=== PATIENT | female | born 1985 | race Caucasian/White ===

== ENCOUNTER 2021-03-12 04:53 | Inpatient (IN) | payer BC ==
--- NOTE | 2021-03-11 22:00 | PCM.LDHP ---
L&D History of Present Illness - General Date of Service: 03/12/21 Admit Problem/Dx: Admission Diagnosis/Problem Admission Diagnosis/Problem 03/11/21 21:40 Mary is a 36-year-old 7 para 2-0-4-2 female admitted on the a.m. of 03/12/2021 with an [place] of 03/23/2021 for repeat section. Repeat C- section done at this gestational age for history of hypertension on hypertensive medications earlier in . Source of Information: Patient History Limitations: Reports: No Limitations - History of Present Illness Introduction:: Mary is a 36-year-old 7 para 2-0-4-2 female admitted on the a.m. of 03/12/2021 with an [place] of 03/23/2021 for repeat section. Repeat C- section done at this gestational age for history of hypertension on hypertensive medications earlier in . The procedure of repeat section, its risks, benefits, limitations and follow-up were all discussed with patient in detail. She appears to understand and wishes to proceed. 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 Her section being done for failure to progress. Second section for elective repeat. Patient had menarche at age 13. Cycles q. 28 to 30 days and fairly regular. Certain onset of last menstrual 06/16/2020. Patient has no history of abnormal Pap smear. No history of STIs. Past obstetric history includes the followin. Miscarriage occurring at 6 weeks gestation on 02/24/2005 2. Miscarriage occurring at 6 weeks on 07/29/2006 3. Male infant born on 11/24/2009 at 40 weeks gestational age18 hours of labor6 pounds 14 ouncesprimary done for forward progress and CPD. [facility]. [facility] 4. Miscarriage at 8 weeks gestational age on 10/09/2011 5. Male infant born on 10/08/2013 at 39 weeks gestational age2 hours labor7 pounds 8 ounceselective repeat sectionspinal block for anesthesia- born in [place], [place]. Child's name is Karl 6. Miscarriage at 8 weeks occurring on 11/07/2015. course: Mary was seen for her first visit on 08/28/2020. She had an ultrasound done at that time which correlated exactly with her LMP dating. She had 4 other ultrasounds during the course the which correlated well with her [place] of 03/23/2021. She was seen on a very regular basis during the course of her . Patient's weight gain was from 212 to 237 pounds for 25 pound increase. Her blood pressures were normal on first evaluation but patient was on lisinopril at that time for previously diagnosed hypertension. This was discontinued right away. Patient was started on baby aspirin daily. Throughout the course of her she has not been on blood pressure medications. She was seen by M during her and recommendation was for delivery after 38 weeks gestation. Fundal height growth has been appropriate for dates. She is group B strep negative. She she has risk factors of being AMA. On lisinopril in early part of the , history of x2, history of kidney stones, history of miscarriages x4, increased distance from hospital she lives in [place], [place]. Her prequel testing was negative for trisomy 21, 18 and 13. She plans to breast- feed. She has a history of oral HSV. She smokes about 1/2 pack/day but was smoking 2 packs/day early in the . She received her hepatitis vaccination in 1998. She is rubella immune. Laboratory testing shows blood to be be positive with a negative antibody screen. First hemoglobin was 13.6 g/dL and platelets are 278,000. She is rubella immune. RPR is nonreactive. Initial urine culture showed E. coli which was treated. Her hepatitis B surface antigen and HIV assays were both negative. Prequel was performed and was negative for trisomy 21, 18 and 13. HCV antibody 01/01/2021 was less than 0.1. Second trimester labs showed a hemoglobin which is mildly decreased at 11.5 g/dL and platelets are 266,000. Her 1 hour GTT was 108. Group B strep screen 03/01/2021 was negative. RPR done on 01/02/2000 was nonreactive. Allergies: None Medications: 1. vitamins 1 daily 2. Aspirin 81 mg p.o. daily 3. Valacyclovir 1 tablet daily prophylactically 4. Flonase allergy relief nasal spray 50 mcg per action use as needed for allergies 5. Ferrous sulfate 325 mg p.o. daily. 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 2. History of kidney stones 3. Hypertension on medication since 2016was found to be normotensive on first visit 4. Anxiety and that she is afraid of . 5. depression with first 6. Gastroesophageal reflux disease with endoscopy showing polyps in 2019 7. History of multiple miscarriages x4 Past surgical history: 1. Endoscopy showing polyps 2019 2. x2 Family history: Mother is alive but with high blood pressure. She has a history of alcohol abuse. She is 55 years old. Maternal grandmother is secondary to meth overdose at age 52. Maternal grandfather is secondary to leukemia. Father is alive with high blood pressure. Also had testicular cancer 10 to 15 years ago. Paternal grandfather is alive at age 86 but is losing his memory. Paternal grandmother is alive and healthy. Brothers are alive and well. Sisters x2 are alive. One sister has had a baby. Cousins uncles and aunts show a paternal aunt had breast cancer early in life is alive. Patient has had DNA mutation testing. She reports them to be negative. There is family history of cancer but types are unknown. No family history of bleeding, clotting, anesthesia or related concerns. Social history: Patient is . Significant other is Juan Dao. 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 She smokes half pack per day but does not use any significant also alcohol or other drugs. Review of systems: In general patient has no complaints. Baby has been active. Some cramping has been noted no loss of fluid or vaginal bleeding. Skin: Negative Lungs: No infectious symptoms or shortness of breath Cardiovascular: No chest pain or exercise intolerance Breasts: No lumps, changes in size, pain, dimpling, discharge or axillary or supraclavicular concerns. GI: Negative : Body habitus changes consistent with . Musculoskeletal: Negative Neurological: Negative Physical exam: In general the patient is well-developed, well-nourished, pleasant female of stated age in no acute distress. On last evaluation clinic patient's blood pressure is 126/78. Weight was 237 with first weight at 212. Her height is 5 feet 8 inches. Prepregnancy body mass index is 33. Skin is warm dry without lesions. HEENT, neck and back within normal limits. Lungs are clear with good breath sounds in all lung sanchez. Cardiovascular exam shows regular and rhythm without murmurs. Breast exam is not done at this time having been done at first mayuri visit, showing pendulous breasts but no abnormalities. It is not repeated at this point. Abdomen is gravid with last fundal height in clinic at 88 cm, baby in vertex presentation. Genital per bimanual last done on 03/01/2021 strip shows cervix is closed, 50% effaced, soft, -3, mid position. Extremities and neurological exam are grossly within normal limits. - Related Data Allergies/Adverse Reactions: Allergies Allergy/AdvReac Type Severity Reaction Status Date / Time No Known Allergies Allergy Verified 03/11/21 14:48 Home Medications: Home Meds Aspirin 81 mg PO DAILY 03/11/21 [History] Fluticasone Propionate [Flonase Allergy Relief] 9.9 ml NS 03/11/21 [History] Vit,Cachorro 74/Iron/Folic [ Low Iron Tablet] 1 tab PO DAILY 03/11/21 [History] valACYclovir HCl [Valtrex] 1 tab PO DAILY 03/11/21 [History] Past Medical History HEENT History: Reports: Otitis Media, Sinusitis Other HEENT History: treated in the last 2 wweks Cardiovascular History: Reports: Hypertension Other Cardiovascular History: not currently on any meds Genitourinary History: Reports: Renal Calculus AIRPORT ENGINEER History: Reports: , Spontaneous Psychiatric History: Reports: Anxiety Hematologic History: Reports: Anemia - Past Surgical History Head Surgeries/Procedures: Reports: None HEENT Surgical History: Reports: Oral Surgery, Other (See Below) Other HEENT Surgeries/Procedures: History of Section x 2 Cardiovascular Surgical History: Reports: None Female Surgical History: Reports: Section Social & Family History - Family History Family Medical History: No Pertinent Family History - Tobacco Use Tobacco Use Status *Q: Current Some Day Tobacco User Years of Tobacco use: 20 Packs/Tins Daily: 0.5 Used Tobacco, but Quit: No Second Hand Smoke Exposure: No - Caffeine Use Caffeine Use: Reports: None - Recreational Drug Use Recreational Drug Use: No H&P Review of Systems - Review of Systems: Review Of Systems: See Below L&D Exam - Exam Exam: See Below - Problem List (1) History of hypertension SNOMED Code(s): 044151383 ICD Code: Z86.79 - PERSONAL HISTORY OF OTHER DISEASES OF THE CIRCULATORY SYSTEM Status: Acute (2) AMA (advanced maternal age) multigravida 35+ SNOMED Code(s): 935522754 ICD Code: O09.529 - SUPERVISION OF ELDERLY MULTIGRAVIDA, UNSPECIFIED TRIMESTER Status: Acute (3) 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, not SNOMED Code(s): 525334803, 366668622, 654490335 ICD Code: N96 - RECURRENT LOSS Status: Acute (4) Recurrent loss SNOMED Code(s): 749989423 ICD Code: N96 - RECURRENT LOSS Status: Acute (5) Obesity SNOMED Code(s): 548651769, 299689968 ICD Code: E66.9 - OBESITY, UNSPECIFIED Status: Acute (6) History of smoking SNOMED Code(s): 626216408 ICD Code: Z87.891 - PERSONAL HISTORY OF NICOTINE DEPENDENCE Status: Acute (7) Group beta Strep positive SNOMED Code(s): 878930222, 754858732 ICD Code: B95.1 - STREPTOCOCCUS, GROUP B, CAUSING DISEASES CLASSD ELSWHR Status: Acute (8) Anemia affecting SNOMED Code(s): 87692716 ICD Code: O99.019 - ANEMIA COMPLICATING , UNSPECIFIED TRIMESTER Status: Acute (9) History of kidney stones SNOMED Code(s): 230404739 ICD Code: Z87.442 - PERSONAL HISTORY OF URINARY CALCULI Status: Acute (10) Anxiety SNOMED Code(s): 73865018 ICD Code: F41.9 - ANXIETY DISORDER, UNSPECIFIED Status: Acute Problem List Initiated/Reviewed/Updated: Yes Assessment/Plan Comment:: 1David Hernandez is a 36-year-old 7 para 2-0-4-2 female admitted on the a.m. of 03/12/2021 with an [place] of 03/23/2021 for repeat section. Repeat C- section done at this gestational age for history of hypertension on hypertensive medications earlier in . Procedure, risk, benefits, alternatives of care and follow-up were discussed with patient. She appears understand and wished to proceed 2. Group B strep positive status. 3. Risk factors for include: Group B positive status, history of smoking, history of anemia, history of anxiety, history of oral herpes, history of x2, history of hypertension, history of recurrent miscarriages, history of kidney stones, increased distance from the hospital. 4. Previous was done for failure to progress. 5. Prequel negative for trisomy 21, 18 and 13 6. Patient plans to breast-feed 7. Patient is rubella immune. Plan: 1. Repeat lower uterine segment transverse section through Pfannenstiel skin incision 2. DVT prophylaxis with SCDs 3. Infection prophylaxis with Ancef 2 g preop 4. Preoperative evaluation consist of CBC, type and screen, Covid testing, urine analysis and RPR per protocol.
[2021-03-12] MEDS ORDERED: Metoclopramide 10 MG/2 ML SDV IVPUSH ONE (04:56)
[2021-03-12] MEDS ORDERED: Sodium Chloride 0.9% 10 ML Syringe FLUSH PRN (04:56)
[2021-03-12] MEDS ORDERED: Citric Acid/Sodium Citrate Solution 30 ML Cup PO ONE (04:56)
[2021-03-12] MEDS ORDERED: Lactated Ringers 1,000 ML IV SCH (05:00)
[2021-03-12] MEDS ORDERED: Morphine PF 10 MG/10 ML SDV ONE (07:13)
[2021-03-12] MEDS ORDERED: Bupivacaine 0.5% 30 ML SDV ONE (07:13)
[2021-03-12] MEDS ORDERED: Oxytocin 10 Units/1 ML SDV ONE (07:16)
--- NOTE | 2021-03-12 07:38 | PCM.PREANE ---
Preanesthetic Assessment - Anesthesia/Transfusion/Family Hx Anesthesia History: Prior Anesthesia Without Reaction Family History of Anesthesia Reaction: No Transfusion History: No Prior Transfusion(s) Intubation History: Unknown - Review of Systems General: No Symptoms Pulmonary: No Symptoms, Other (allergies- seasonal ) Cardiovascular: No Symptoms Gastrointestinal: No Symptoms Neurological: No Symptoms Other: Reports: None - Physical Assessment NPO Status Date: 03/11/21 NPO Status Time: 22:00 Vital Signs: Last Vital Signs Temp 36.7 C 03/12/21 05:12 Pulse 90 03/12/21 05:12 Resp 16 03/12/21 05:12 BP 135/87 03/12/21 05:12 Pulse Ox 95 03/12/21 05:12 Height: 1.73 m Weight: 107.048 kg ASA Class: 2 Mental Status: Alert & Oriented x3 Airway Class: Mallampati = 1 Dentition: Reports: Normal Dentition Thyro-Mental Finger Breadths: 3 ROM/Head Extension: Full Lungs: Clear to Auscultation, Normal Respiratory Effort Cardiovascular: Regular Rate, Regular Rhythm - Lab Values: Laboratory Last Values WBC 9.38 K/mm3 (3.98-10.04) 03/12/21 05:15 RBC 3.57 M/mm3 (3.98-5.22) L 03/12/21 05:15 Hgb 11.6 gm/dl (11.2-15.7) 03/12/21 05:15 Hct 33.5 % (34.1-44.9) L 03/12/21 05:15 MCV 93.8 fl (79.4-94.8) 03/12/21 05:15 MCH 32.5 pg (25.6-32.2) H 03/12/21 05:15 MCHC 34.6 g/dl (32.2-35.5) 03/12/21 05:15 RDW Std Deviation 40.6 fL (36.4-46.3) 03/12/21 05:15 Plt Count 228 K/mm3 (182-369) 03/12/21 05:15 MPV 9.8 fl (9.4-12.3) 03/12/21 05:15 Neut % (Auto) 62.4 % (34.0-71.1) 03/12/21 05:15 Lymph % (Auto) 26.4 % (19.3-51.7) 03/12/21 05:15 Rooks % (Auto) 8.8 % (4.7-12.5) 03/12/21 05:15 Eos % (Auto) 1.9 (0.7-5.8) 03/12/21 05:15 Baso % (Auto) 0.2 % (0.1-1.2) 03/12/21 05:15 Neut # (Auto) 5.84 K/mm3 (1.56-6.13) 03/12/21 05:15 Lymph # (Auto) 2.48 K/mm3 (1.18-3.74) 03/12/21 05:15 Rooks # (Auto) 0.83 K/mm3 (0.24-0.36) H 03/12/21 05:15 Eos # (Auto) 0.18 K/mm3 (0.04-0.36) 03/12/21 05:15 Baso # (Auto) 0.02 K/mm3 (0.01-0.08) 03/12/21 05:15 SARS-CoV-2 RNA (ELROY) Negative (NEGATIVE) 03/12/21 05:40 Blood Type B POSITIVE 03/12/21 05:15 - Allergies Allergies/Adverse Reactions: Allergies Allergy/AdvReac Type Severity Reaction Status Date / Time No Known Allergies Allergy Verified 03/12/21 05:44 - Blood Blood Available: Yes Product(s) Available: PRBC - Anesthesia Plan Pre-Op Medication Ordered: None Beta Anuel: Other (preanesthesia protocol meds) - Acknowledgements Anesthesia Type Planned: Spinal Pt an Appropriate Candidate for the Planned Anesthesia: Yes Alternatives and Risks of Anesthesia Discussed w Pt/Guardian: Yes Pt/Guardian Understands and Agrees with Anesthesia Plan: Yes PreAnesthesia Questionnaire HEENT History: Reports: Otitis Media, Sinusitis Other HEENT History: treated in the last 2 wweks Cardiovascular History: Reports: Hypertension Other Cardiovascular History: not currently on any meds Genitourinary History: Reports: Renal Calculus 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: , 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 Psychiatric History: Reports: Anxiety Hematologic History: Reports: Anemia - Past Surgical History Head Surgeries/Procedures: Reports: None HEENT Surgical History: Reports: Oral Surgery, Other (See Below) Other HEENT Surgeries/Procedures: History of Section x 2 Cardiovascular Surgical History: Reports: None Female Surgical History: Reports: Section - SUBSTANCE USE Tobacco Use Status *Q: Current Some Day Tobacco User Tobacco Use Within Last Twelve Months: Cigarettes Second Hand Smoke Exposure: No Recreational Drug Use History: No - HOME MEDS Home Medications: Home Meds Aspirin 81 mg PO DAILY 03/11/21 [History] Fluticasone Propionate [Flonase Allergy Relief] 9.9 ml NS DAILY PRN 03/11/21 [History] Vit,Cachorro 74/Iron/Folic [ Low Iron Tablet] 1 tab PO DAILY 03/11/21 [History] valACYclovir HCl [Valtrex] 1 tab PO DAILY 03/11/21 [History] Acetaminophen [Tylenol] 1 tab PO DAILY PRN 03/12/21 [History] Ferrous Sulfate [Iron] 1 tab PO DAILY 03/12/21 [History] - CURRENT (IN HOUSE) MEDS Current Meds: Current Medications Lactated Ringer's (Ringers, Lactated) 1,000 mls @ 125 mls/hr IV ASDIRECTED LENCHO Last Admin: 03/12/21 05:24 Dose: 125 mls/hr Documented by: Sodium Chloride (Sodium Chloride 0.9% 10 Ml Syringe) 10 ml FLUSH ASDIRECTED PRN PRN Reason: Keep Vein Open Discontinued Medications Bupivacaine HCl (Bupivacaine 0.5% 30 Ml Sdv) Confirm Administered Dose 30 ml .ROUTE .STK-MED ONE Stop: 03/12/21 07:14 Citric Acid/Sodium Citrate (Citric Acid/Sodium Citrate Solution 30 Ml Cup) 30 ml PO ONETIME ONE Stop: 03/12/21 04:57 Metoclopramide HCl (Metoclopramide 10 Mg/2 Ml Sdv) 10 mg IVPUSH ONETIME ONE Stop: 03/12/21 04:57 Morphine Sulfate (Morphine Pf 10 Mg/10 Ml Sdv) Confirm Administered Dose 10 mg .ROUTE .STK-MED ONE Stop: 03/12/21 07:14 Oxytocin (Oxytocin 10 Units/1 Ml Sdv) Confirm Administered Dose 20 unit .ROUTE .STK-MED ONE Stop: 03/12/21 07:17
[2021-03-12] MEDS ORDERED: Lactated Ringers 0 ML ONE (08:15)
[2021-03-12] MEDS ORDERED: Ondansetron 4 MG/2 ML SDV ONE (08:15)
[2021-03-12] MEDS ORDERED: Lactated Ringers 1,000 ML ONE (08:15)
[2021-03-12] MEDS ORDERED: Ketorolac 30 MG/ML SDV ONE (08:15)
[2021-03-12] MEDS ORDERED: Lidocaine 1% 2 ML ONE (08:15)
[2021-03-12] MEDS ORDERED: ceFAZolin 1 GM Vial ONE (08:16)
[2021-03-12] MEDS ORDERED: diphenhydrAMINE 50 MG/ML SDV IVPUSH PRN ×2 (09:04→10:05)
[2021-03-12] MEDS ORDERED: Ondansetron 4 MG/2 ML SDV IVPUSH PRN (09:04)
[2021-03-12] MEDS ORDERED: fentaNYL 100 MCG/2 ML SDV IVPUSH PRN (09:04)
--- NOTE | 2021-03-12 09:07 | PCM.POSTAN ---
POST ANESTHESIA ASSESSMENT - MENTAL STATUS Mental Status: Alert - VITAL SIGNS Vital Signs: Last Vital Signs Temp 36.2 C 03/12/21 08:56 Pulse 69 03/12/21 08:56 Resp 12 03/12/21 08:56 BP 126/67 03/12/21 08:56 Pulse Ox 100 03/12/21 08:56 - RESPIRATORY Respiratory Status: Respiratory Rate WNL, Airway Patent, O2 Saturation Stable - CARDIOVASCULAR CV Status: Pulse Rate WNL, Blood Pressure Stable - GASTROINTESTINAL GI Status: No Symptoms - PAIN Pain Score: 0 - POST OP HYDRATION Hydration Status: Adequate & Stable
--- NOTE | 2021-03-12 09:14 | PCM.OPNOTE ---
- General Post-Op/Procedure Note Date of Surgery/Procedure: 03/12/21 Operative Procedure(s): Repeat lower uterine segment transverse section through Pfannenstiel skin incision Findings: Moderate scarring noted in the anterior abdominal wall. No significant uterine, tubal or ovarian scarring noted. Minimal scarring in the area of the bladder flap. Baby is in vertex presentation, amniotic fluid was clear. Male born at 0824 hrs. on 03/12/2021. Weight was 7 pounds 3 ounces. scores 8 and 9. Pre Op Diagnosis: 1. 38-3/7-week intrauterine . 2. History of previous x2 with desire for repeat section. 3. Hypertension in early resolved in second and third trimester Post-Op Diagnosis: Same Anesthesia Technique: Spinal Other Anesthesia Type: Marcaine 0.5%20 cclocal Primary Surgeon: Prosper Elaine Secondary Surgeon: Amrik Man Anesthesia Provider: Mabel Boone Reason Chinchilla Machine Operator Was Necessary: Retraction, assistance, patient safety, quality of care. Fluid Replacement, Intraop: 1,200 Output, Urine Amount: 50 EBL in mLs: 500 Drain/Tube Comments:: Indwelling bladder catheter Complications: None Condition: Good Free Text/Narrative:: Surgery duration: 22 minutes Surgery duration: Procedure: The patient is appropriately consented. Patient was transferred to the room and placed in a sitting position. Spinal anesthesia was administered. After confirmation of adequate anesthesia patient was placed in a supine position with a wedge under her right side to facilitate left lateral positioning. The patient was prepped and draped in usual fashion after River catheter was already placed . The anesthetic was checked and found to be adequ ate. 20 mL of Marcaine 0.5% was injected locally in the Pfannenstiel incision site. The Pfannenstiel skin incision was then made and carried down through skin, subcutaneous and fascial layers. The fascia was then undermined superiorly and inferiorly to allow for adequate operating room. The recti muscles midline and preperitoneal fat was bluntly dissected. Peritoneal cavity was entered longitudinally. The vesicouterine peritoneum was then incised transversely and bladder flap was developed. Myometrium was incised transversely to the level of the amniotic sac. This incision was extended bilaterally in a blunt fashion. The amniotic sac was then ruptured resulting in clear amniotic fluid. A hand is placed in the low uterine segment but because of the firmness of the uterine and abdominal wall scarring a vacuum extractor was placed and the baby's head was brought forth through the incision easily. The baby was completely delivered using fundal pressure in a routine fashion. The nose and mouth were bulb suctioned. Baby's cord was clamped x2 cut and baby was handed off to attending voice data communications engineer Dr Medrano. Placenta was expressed after cord blood was obtained. Uterus was then exteriorized to allow for easier closure. The cervix was assessed and found to be dilated adequately to allow egress of blood. The uterus was closed in 2 layers. The first layer a running locked suture of 0 Monocryl, the second layer a running locked vertical mattress suture of 0 Monocryl. Sponge, instrument and needle counts are correct. The uterus was returned to the abdominal cavity and lateral gutters were cleared of blood. Once again sponge needle counts are correct. The anterior abdominal wall was closed with a #1 PDS suture from angle to angle. The subcutaneous area was found to be free of any bleeders. interrupted sutures of 3-0 Monocryl were used to reapproximate the subcutaneous layer.Skin was closed with a running subcuticular stitch of 3-0 Monocryl in a vertical mattress suture fashion using a Matt needle. Prineo mesh/glue was then applied to further approximate the incision. It should be noted that patient received 2 g of Ancef preoperatively for infection prophylaxis and had Pitocin infused after delivery of the placenta to facilitate uterine contraction. She also had sequential compression stockings in place for DVT prophylaxis. Patient was discharged from the operating room in satisfactory condition.
[2021-03-12] MEDS ORDERED: Dextrose 5%-Lactated Ringers 1,000 ML IV SCH (10:05)
[2021-03-12] MEDS ORDERED: Naloxone 0.4 MG/ML SDV IVPUSH PRN (10:05)
[2021-03-12] MEDS ORDERED: ePHEDrine 50 MG/ML SDV IVPUSH PRN (10:05)
[2021-03-12] MEDS ORDERED: Ondansetron 4 MG/2 ML SDV IV PRN (10:05)
[2021-03-12] MEDS: Ibuprofen 800 MG Tab PO SCH ×2 (14:49→22:47)
[2021-03-12] MEDS: Simethicone 80 MG Tab.Chew PO SCH ×3 (14:51→22:47)
[2021-03-12] MEDS: Acetaminophen/oxyCODONE 325-5 MG Tab PO PRN (23:16)
[2021-03-13] MEDS: Acetaminophen/oxyCODONE 325-5 MG Tab PO PRN ×4 (05:23→20:09)
[2021-03-13] MEDS: Ibuprofen 800 MG Tab PO SCH ×3 (07:20→22:06)
--- NOTE | 2021-03-13 07:35 | PCM48HPAN ---
Post Anesthesia Note - EVALUATION WITHIN 48HRS OF ANESTHETIC Vital Signs in Normal Range: Yes Patient Participated in Evaluation: Yes Respiratory Function Stable: Yes Airway Patent: Yes Cardiovascular Function Stable: Yes Hydration Status Stable: Yes Pain Control Satisfactory: Yes Nausea and Vomiting Control Satisfactory: Yes Mental Status Recovered: Yes Vital Signs: Last Vital Signs Temp 97.7 F 03/13/21 05:02 Pulse 74 03/13/21 05:03 Resp 16 03/13/21 05:02 BP 134/66 03/13/21 05:02 Pulse Ox 98 03/13/21 05:03 - COMMENTS/OBSERVATIONS Free Text/Narrative:: states back hurts a little. Was informed that would be common. Nursing baby in bed
[2021-03-13] MEDS: Simethicone 80 MG Tab.Chew PO SCH ×4 (08:15→20:10)
[2021-03-13] MEDS: Prenatal Multivitamin with Calcium/Folic Acid/Iron Tab PO SCH (08:15)
--- NOTE | 2021-03-13 08:50 | PCM.PNPP ---
- General Info Date of Service: 03/13/21 Functional Status: Reports: Pain Controlled - Review of Systems General: Reports: No Symptoms HEENT: Reports: No Symptoms Pulmonary: Reports: No Symptoms Cardiovascular: Reports: No Symptoms Gastrointestinal: Reports: No Symptoms Genitourinary: Reports: No Symptoms Musculoskeletal: Reports: No Symptoms Skin: Reports: No Symptoms Neurological: Reports: No Symptoms Psychiatric: Reports: No Symptoms - General Info Date of Service: 03/13/21 - Patient Data Vital Signs - Most Recent: Last Vital Signs Temp 36.5 C 03/13/21 05:02 Pulse 74 03/13/21 05:03 Resp 15 03/13/21 07:00 BP 134/66 03/13/21 05:02 Pulse Ox 98 03/13/21 07:00 Weight - Most Recent: 107.048 kg I&O - Last 24 Hours: Intake & Output 03/12/21 03/13/21 03/13/21 22:59 06:59 14:59 Intake Total 320 Output Total 1900 1600 Balance -1580 -1600 Lab Results - Last 24 Hours: Laboratory Results - last 24 hr 03/12/21 03/12/21 03/13/21 Range/Units 05:15 05:15 05:45 WBC 10.52 H (3.98-10.04) K/mm3 RBC 3.35 L (3.98-5.22) M/mm3 Hgb 10.7 L (11.2-15.7) gm/dl Hct 31.6 L (34.1-44.9) % MCV 94.3 (79.4-94.8) fl MCH 31.9 (25.6-32.2) pg MCHC 33.9 (32.2-35.5) g/dl RDW Std Deviation 41.5 (36.4-46.3) fL Plt Count 214 (182-369) K/mm3 MPV 10.4 (9.4-12.3) fl Neut % (Auto) 67.7 (34.0-71.1) % Lymph % (Auto) 21.2 (19.3-51.7) % [place] % (Auto) 8.6 (4.7-12.5) % Eos % (Auto) 1.8 (0.7-5.8) Baso % (Auto) 0.4 (0.1-1.2) % Neut # (Auto) 7.13 H (1.56-6.13) K/mm3 Lymph # (Auto) 2.23 (1.18-3.74) K/mm3 [place] # (Auto) 0.90 H (0.24-0.36) K/mm3 Eos # (Auto) 0.19 (0.04-0.36) K/mm3 Baso # (Auto) 0.04 (0.01-0.08) K/mm3 RPR Non-reactive (NONREACTIVE) Gel Antibody Screen Negative Med Orders - Current: Current Medications Diphenhydramine HCl (Diphenhydramine 50 Mg/Ml Sdv) 25 mg IVPUSH Q6H PRN PRN Reason: Pruritis Diphenhydramine HCl (Diphenhydramine 50 Mg/Ml Sdv) 25 mg IVPUSH Q6H PRN PRN Reason: Itching or Nausea Docusate Sodium (Docusate Sodium 100 Mg Cap) 100 mg PO Q12H PRN PRN Reason: Constipation Ephedrine Sulfate (Ephedrine 50 Mg/Ml Sdv) 5 mg IVPUSH SEECOMMENT PRN PRN Reason: Other Fentanyl (Fentanyl 100 Mcg/2 Ml Sdv) 50 mcg IVPUSH Q5M PRN PRN Reason: Pain Ibuprofen (Ibuprofen 800 Mg Tab) 800 mg PO Q8H [facility] Last Admin: 03/13/21 07:20 Dose: 800 mg Documented by: Naloxone HCl (Naloxone 0.4 Mg/Ml Sdv) 0.1 mg IVPUSH SEECOMMENT PRN PRN Reason: Respiratory Depression Ondansetron HCl (Ondansetron 4 Mg/2 Ml Sdv) 4 mg IVPUSH ONETIME PRN PRN Reason: Nausea/Vomiting Ondansetron HCl (Ondansetron 4 Mg/2 Ml Sdv) 4 mg IV Q4H PRN PRN Reason: Nausea/Vomiting Oxycodone/Acetaminophen (Acetaminophen/Oxycodone 325-5 Mg Tab) 1 tab PO Q4H PRN PRN Reason: Pain (moderate 4-6) Last Admin: 03/12/21 23:16 Dose: 1 tab Documented by: Oxycodone/Acetaminophen (Acetaminophen/Oxycodone 325-5 Mg Tab) 2 tab PO Q4H PRN PRN Reason: Pain (severe 7-10) Last Admin: 03/13/21 05:23 Dose: 2 tab Documented by: Prenat Multivit/Sheet Catcher/Iron/Folic Ac ( Multivitamin With Calcium/Folic Acid/Iron Tab) 1 each PO DAILY [facility] Last Admin: 03/13/21 08:15 Dose: 1 each Documented by: Simethicone (Simethicone 80 Mg Tab.Chew) 80 mg PO QID [facility] Last Admin: 03/13/21 08:15 Dose: 80 mg Documented by: Discontinued Medications Bupivacaine HCl (Bupivacaine 0.5% 30 Ml Sdv) Confirm Administered Dose 30 ml .ROUTE .STK-MED ONE Stop: 03/12/21 07:14 Last Admin: 03/12/21 08:19 Dose: 20 ml Documented by: Cefazolin Sodium (Cefazolin 1 Gm Vial) Confirm Administered Dose 2 gm .ROUTE .STK-MED ONE Stop: 03/12/21 08:17 Citric Acid/Sodium Citrate (Citric Acid/Sodium Citrate Solution 30 Ml Cup) 30 ml PO ONETIME ONE Stop: 03/12/21 04:57 Last Admin: 03/12/21 07:42 Dose: 30 ml Documented by: Lactated Ringer's (Ringers, Lactated) 1,000 mls @ 125 mls/hr IV ASDIRECTED [facility] Last Infusion: 03/12/21 14:51 Dose: Infused Documented by: Lidocaine HCl (Xylocaine-Mpf 1%) Confirm Administered Dose 2 mls @ as directed .ROUTE .STK-MED ONE Stop: 03/12/21 08:16 Lactated Ringer's (Ringers, Lactated) Confirm Administered Dose 0 mls @ as directed .ROUTE .STK-MED ONE Stop: 03/12/21 08:16 Lactated Ringer's (Ringers, Lactated) Confirm Administered Dose 1,000 mls @ as directed .ROUTE .STK-MED ONE Stop: 03/12/21 08:16 Dextrose/Lactated Ringer's (Dextrose 5%-Lactated Ringers) 1,000 mls @ 125 mls/hr IV ASDIRECTED [facility] Stop: 03/12/21 18:04 Last Admin: 03/12/21 14:53 Dose: 125 mls/hr Documented by: Ketorolac Tromethamine (Ketorolac 30 Mg/Ml Sdv) Confirm Administered Dose 30 mg .ROUTE .STK-MED ONE Stop: 03/12/21 08:16 Metoclopramide HCl (Metoclopramide 10 Mg/2 Ml Sdv) 10 mg IVPUSH ONETIME ONE Stop: 03/12/21 04:57 Last Admin: 03/12/21 07:42 Dose: 10 mg Documented by: Miscellaneous Medication (Phenylephrine Hcl In 0.9% Nacl 1 Mg/10 Ml Syringe) Confirm Administered Dose 0 mg .ROUTE .STK-MED ONE Stop: 03/12/21 08:15 Miscellaneous Medication (Phenylephrine Hcl In 0.9% Nacl 1 Mg/10 Ml Syringe) Confirm Administered Dose 1 mg .ROUTE .STK-MED ONE Stop: 03/12/21 08:16 Morphine Sulfate (Morphine Pf 10 Mg/10 Ml Sdv) Confirm Administered Dose 10 mg .ROUTE .STK-MED ONE Stop: 03/12/21 07:14 Ondansetron HCl (Ondansetron 4 Mg/2 Ml Sdv) Confirm Administered Dose 4 mg .ROUTE .STK-MED ONE Stop: 03/12/21 08:16 Oxytocin (Oxytocin 10 Units/1 Ml Sdv) Confirm Administered Dose 20 unit .ROUTE .STK-MED ONE Stop: 03/12/21 07:17 Sodium Chloride (Sodium Chloride 0.9% 10 Ml Syringe) 10 ml FLUSH ASDIRECTED PRN PRN Reason: Keep Vein Open - Infant Interaction Support Person: Significant Other - Recovery Exam Fundal Tone: Firm Fundal Level: At Umbilicus Fundal Placement: Midline Lochia Amount: Scant Lochia Color: Rubra/Red Perineum Description: Intact, Minimal Bruising/Swelling Episiotomy/Laceration: Approximated Bladder Status: Indwelling Catheter in Place Urinary Elimination: Indwelling Catheter - Exam General: Alert, Oriented HEENT: Pupils Equal Neck: Supple Lungs: Clear to Auscultation, Normal Respiratory Effort Cardiovascular: Regular Rate, Regular Rhythm GI/Abdominal Exam: Normal Bowel Sounds, Soft, Non-Tender, No Organomegaly, No Distention, No Abnormal Bruit, No Mass, Pelvis Stable Extremities: Normal Inspection, Normal Range of Motion, Non-Tender Skin: Warm Wound/Incisions: Healing Well Neurological: No New Focal Deficit Psy/Mental Status: Alert, Normal Affect, Normal Mood - Problem List Review Problem List Initiated/Reviewed/Updated: Yes - Assessment Assessment:: Term . Doing well. No issues other than slightly inadequate pain control so will be more diligent about meds on schedule. - Plan Plan:: 1
[2021-03-13] MEDS: Docusate Sodium 100 MG Cap PO PRN ×2 (17:42→20:10)
[2021-03-14] MEDS: Acetaminophen/oxyCODONE 325-5 MG Tab PO PRN ×4 (01:51→10:23)
[2021-03-14] MEDS: Ibuprofen 800 MG Tab PO SCH (06:55)
--- NOTE | 2021-03-14 10:08 | PCM.DCSUM1 ---
Discharge Summary - Hospital Course Free Text/Narrative:: Mary is a 36-year-old multigravida female admitted on 03/12/2021 at 38-3/7 weeks gestational age for elective repeat section. Indications for section were previous section x2 with desire for repeat section. Indication for timing of at 38+ weeks was because of hypertension in early which resolved in second and third trimester. Please see admission history and physical for details. Patient was taken to surgery on 03/12/2021. Findings at the time of surgery were as follows: Moderate scarring noted in the anterior abdominal wall. No significant uterine, tubal or ovarian scarring noted. Minimal scarring in the area of the bladder flap. Baby is in vertex presentation, amniotic fluid was clear. Male infant born at 0824 hrs. on 03/12/[birth year]21. Weight was 7 pounds 3 ounces. scores 8 and 9. patient is done very well she is nursing without problems. She is ambulating well, has minimal lochia and is voiding without concerns. Follow-up CBC was relatively normal for the .. She has developed some slight anxiety and depression symptoms. She relates that she had this before and was on Lexapro before. She wants to wait with starting anything as she is in counseling with a counselor in [place] named Quinten. She is at [facility]. She wishes to continue this but would like to have a prescription for an SSRI in case she would like to start. She is desiring discharge home today. 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, not SNOMED Code(s): 445007242, 502149405, 920102575 ICD Code: N96 - RECURRENT LOSS Status: Acute Current Visit: No (4) Recurrent loss SNOMED Code(s): 789390938 ICD Code: N96 - RECURRENT LOSS Status: Acute Current Visit: No (5) Obesity SNOMED Code(s): 202564844, 779614073 ICD Code: E66.9 - OBESITY, UNSPECIFIED Status: Acute Current Visit: No (6) History of smoking SNOMED Code(s): 416241026 ICD Code: Z87.891 - PERSONAL HISTORY OF NICOTINE DEPENDENCE Status: Acute Current Visit: No (7) Group beta Strep positive SNOMED Code(s): 369972730, 759451554 ICD Code: B95.1 - STREPTOCOCCUS, GROUP B, CAUSING DISEASES CLASSD ELSWHR Status: Acute Current Visit: No (8) Anemia affecting SNOMED Code(s): 92968564 ICD Code: O99.019 - ANEMIA COMPLICATING , UNSPECIFIED TRIMESTER Status: Acute Current Visit: No (9) History of kidney stones SNOMED Code(s): 911828183 ICD Code: Z87.442 - PERSONAL HISTORY OF URINARY CALCULI Status: Acute Current Visit: No (10) Anxiety SNOMED Code(s): 68662960 ICD Code: F41.9 - ANXIETY DISORDER, UNSPECIFIED Status: Acute Current Visit: No - Patient Summary/Data Operative Procedure(s) Performed: Repeat lower uterine segment transverse section through Pfannenstiel skin incision - Patient Instructions Diet: Usual Diet as Tolerated (Nursing diet with increased calories and calcium as recommended) Activity: As Tolerated (No lifting greater than 15 pounds or driving a car times the next 7 to 10 days. No intercourse or tampons until seen back.) Driving: Do Not Drive Showering/Bathing: May Shower Wound/Incision Care: Keep Operative Site/Wound Site Clean and Dry Notify Provider of: Fever, Increased Pain, Swelling and Redness, Drainage, Nausea and/or Vomiting - Discharge Plan Home Medications: Home Meds Fluticasone Propionate [Flonase Allergy Relief] 9.9 ml NS DAILY PRN 03/11/21 [History] Vit,Cachorro 74/Iron/Folic [ Low Iron Tablet] 1 tab PO DAILY 03/11/21 [History] Ferrous Sulfate [Iron] 1 tab PO DAILY 03/12/21 [History] Acetaminophen/oxyCODONE [Percocet 325-5 MG] 2 tab PO Q4H PRN tablet 03/14/21 [Rx] Ibuprofen [Motrin] 600 mg PO Q4H PRN #30 tablet 03/14/21 [Rx] Patient Handouts: Care After Delivery, Steps to Quit Smoking - Discharge Summary/Plan Comment DC Time >30 min.: No Discharge Summary/Plan Comment: Discharge instructions: 1. Discharge home 2. Diet, activity and follow-up discussed with patient. Recommend nursing diet with increased calories and calcium. 3. Precautions given concern increased pain, bleeding, temperature, signs/symptoms of DVT/PE. 4. Medications per home medication was printed, discussed with and given to the patient. 5. Return to clinic-Dr. Elaine[facility] in 2 weeks. Diagnosis: Term -delivered Condition: Good - Patient Data Vitals - Most Recent: Last Vital Signs Temp 36.7 C 03/14/21 03:57 Pulse 77 03/14/21 03:57 Resp 15 03/14/21 03:57 BP 121/73 03/14/21 03:57 Pulse Ox 96 03/14/21 03:57 Weight - Most Recent: 107.048 kg I&O - Last 24 hours: Intake & Output 03/13/21 03/14/21 03/14/21 22:59 06:59 14:59 Intake Total 0 Balance 0 Lab Results - Last 24 hrs: Laboratory Results - last 24 hr 03/12/21 Range/Units 05:15 Hepatitis C Antibody <0.1 (0.0-0.9) s/co ratio Med Orders - Current: Current Medications Diphenhydramine HCl (Diphenhydramine 50 Mg/Ml Sdv) 25 mg IVPUSH Q6H PRN PRN Reason: Pruritis Diphenhydramine HCl (Diphenhydramine 50 Mg/Ml Sdv) 25 mg IVPUSH Q6H PRN PRN Reason: Itching or Nausea Docusate Sodium (Docusate Sodium 100 Mg Cap) 100 mg PO Q12H PRN PRN Reason: Constipation Last Admin: 03/13/21 20:10 Dose: 100 mg Documented by: Ephedrine Sulfate (Ephedrine 50 Mg/Ml Sdv) 5 mg IVPUSH SEECOMMENT PRN PRN Reason: Other Fentanyl (Fentanyl 100 Mcg/2 Ml Sdv) 50 mcg IVPUSH Q5M PRN PRN Reason: Pain Ibuprofen (Ibuprofen 800 Mg Tab) 800 mg PO Q8H [facility] Last Admin: 03/14/21 06:55 Dose: 800 mg Documented by: Naloxone HCl (Naloxone 0.4 Mg/Ml Sdv) 0.1 mg IVPUSH SEECOMMENT PRN PRN Reason: Respiratory Depression Ondansetron HCl (Ondansetron 4 Mg/2 Ml Sdv) 4 mg IVPUSH ONETIME PRN PRN Reason: Nausea/Vomiting Ondansetron HCl (Ondansetron 4 Mg/2 Ml Sdv) 4 mg IV Q4H PRN PRN Reason: Nausea/Vomiting Oxycodone/Acetaminophen (Acetaminophen/Oxycodone 325-5 Mg Tab) 1 tab PO Q4H PRN PRN Reason: Pain (moderate 4-6) Last Admin: 03/14/21 02:25 Dose: 1 tab Documented by: Oxycodone/Acetaminophen (Acetaminophen/Oxycodone 325-5 Mg Tab) 2 tab PO Q4H PRN PRN Reason: Pain (severe 7-10) Last Admin: 03/14/21 06:56 Dose: 2 tab Documented by: Prenat Multivit/Bird Raiser/Iron/Folic Ac ( Multivitamin With Calcium/Folic Acid/Iron Tab) 1 each PO DAILY [facility] Last Admin: 03/13/21 08:15 Dose: 1 each Documented by: Simethicone (Simethicone 80 Mg Tab.Chew) 80 mg PO QID [facility] Last Admin: 03/13/21 20:10 Dose: 80 mg Documented by: Discontinued Medications Bupivacaine HCl (Bupivacaine 0.5% 30 Ml Sdv) Confirm Administered Dose 30 ml .ROUTE .STK-MED ONE Stop: 03/12/21 07:14 Last Admin: 03/12/21 08:19 Dose: 20 ml Documented by: Cefazolin Sodium (Cefazolin 1 Gm Vial) Confirm Administered Dose 2 gm .ROUTE .STK-MED ONE Stop: 03/12/21 08:17 Citric Acid/Sodium Citrate (Citric Acid/Sodium Citrate Solution 30 Ml Cup) 30 ml PO ONETIME ONE Stop: 03/12/21 04:57 Last Admin: 03/12/21 07:42 Dose: 30 ml Documented by: Lactated Ringer's (Ringers, Lactated) 1,000 mls @ 125 mls/hr IV ASDIRECTED [facility] Last Infusion: 03/12/21 14:51 Dose: Infused Documented by: Lidocaine HCl (Xylocaine-Mpf 1%) Confirm Administered Dose 2 mls @ as directed .ROUTE .STK-MED ONE Stop: 03/12/21 08:16 Lactated Ringer's (Ringers, Lactated) Confirm Administered Dose 0 mls @ as directed .ROUTE .STK-MED ONE Stop: 03/12/21 08:16 Lactated Ringer's (Ringers, Lactated) Confirm Administered Dose 1,000 mls @ as directed .ROUTE .STK-MED ONE Stop: 03/12/21 08:16 Dextrose/Lactated Ringer's (Dextrose 5%-Lactated Ringers) 1,000 mls @ 125 mls/hr IV ASDIRECTED [facility] Stop: 03/12/21 18:04 Last Admin: 03/12/21 14:53 Dose: 125 mls/hr Documented by: Ketorolac Tromethamine (Ketorolac 30 Mg/Ml Sdv) Confirm Administered Dose 30 mg .ROUTE .STK-MED ONE Stop: 03/12/21 08:16 Metoclopramide HCl (Metoclopramide 10 Mg/2 Ml Sdv) 10 mg IVPUSH ONETIME ONE Stop: 03/12/21 04:57 Last Admin: 03/12/21 07:42 Dose: 10 mg Documented by: Miscellaneous Medication (Phenylephrine Hcl In 0.9% Nacl 1 Mg/10 Ml Syringe) Confirm Administered Dose 0 mg .ROUTE .STK-MED ONE Stop: 03/12/21 08:15 Miscellaneous Medication (Phenylephrine Hcl In 0.9% Nacl 1 Mg/10 Ml Syringe) Confirm Administered Dose 1 mg .ROUTE .STK-MED ONE Stop: 03/12/21 08:16 Morphine Sulfate (Morphine Pf 10 Mg/10 Ml Sdv) Confirm Administered Dose 10 mg .ROUTE .STK-MED ONE Stop: 03/12/21 07:14 Ondansetron HCl (Ondansetron 4 Mg/2 Ml Sdv) Confirm Administered Dose 4 mg .ROUTE .STK-MED ONE Stop: 03/12/21 08:16 Oxytocin (Oxytocin 10 Units/1 Ml Sdv) Confirm Administered Dose 20 unit .ROUTE .STK-MED ONE Stop: 03/12/21 07:17 Sodium Chloride (Sodium Chloride 0.9% 10 Ml Syringe) 10 ml FLUSH ASDIRECTED PRN PRN Reason: Keep Vein Open
[2021-03-14] MEDS: Simethicone 80 MG Tab.Chew PO SCH (10:21)
[2021-03-14] MEDS: Prenatal Multivitamin with Calcium/Folic Acid/Iron Tab PO SCH (10:21)
== END 2021-03-14 10:35 | disposition home or self-care (01) | DRG 540 ==
LOC: JD.OB 04:53
PROVIDERS: ADMIT Obstetrics & Gynecology; ATTEND Obstetrics & Gynecology
PROC: 10D00Z1 Extraction of Products of Conception, Low, Open Approach (ICD-10-PCS; principal; 2021-03-12)
DX: O34.211 Maternal care for low transverse scar from previous cesarean delivery (principal); Z37.0 Single live birth; Z3A.38 38 weeks gestation of pregnancy; Z20.822 Contact with and (suspected) exposure to COVID-19; O99.214 Obesity complicating childbirth; E66.9 Obesity, unspecified; O99.824 Streptococcus B carrier state complicating childbirth; O99.02 Anemia complicating childbirth; D64.9 Anemia, unspecified; O99.344 Other mental disorders complicating childbirth; F41.8 Other specified anxiety disorders
CPT/HCPCS: 01961; 36415; 59025; 85025; 86592; 86803; 86850; 86900; 86901; 94762; A9270-GY; J0690; J1885; J2270; J2370; J2405; J2590; J2765; J3490; J7120; J7121; U0002